=== PATIENT | female | born 1990 | race Caucasian/White ===

== ENCOUNTER 2020-01-31 21:59 | Outpatient (REF) | payer BC, SELFPAY ==
[2020-02-01 20:05] LABS: Influenza A RNA Result Negative (Negative); Influenza B RNA Result Negative (Negative); RSV RNA Result Negative (Negative)
[2020-02-04 12:06] LABS: COVID-19 RT-PCR Result NEGATIVE (Negative)
== END 2020-01-31 22:19 ==
LOC: LBN 21:59
PROVIDERS: PCP Family Medicine; Visit Provider Student in an Organized Health Care Education/Training Program
DX: M79.18 Myalgia, other site (principal); B34.9 Viral infection, unspecified
CPT/HCPCS: 87631; U0003

== ENCOUNTER 2020-07-24 12:11 | Emergency (ER) | payer BC, SELFPAY ==
[2020-07-24 12:15] VITALS: BP 142/98; PULSE 88; RESP 16; TEMP 36.9; O2SAT 100
--- NOTE | 2020-07-24 12:15 | DI.RAD_ITS ---
Exam(s) XR ANKLE RT COMPLETE EXAM: XR ANKLE RT COMPLETE CLINICAL HISTORY: Fall, pain. TECHNIQUE: 2D digital imaging was performed. COMPARISON: No exams were available for comparison FINDINGS: BONES: No acute fracture is present. No bony destructive lesion is seen. JOINTS: The ankle mortise is normally aligned. SOFT TISSUE: Swelling greater around the lateral malleolus. IMPRESSION: Unremarkable radiographs of the right ankle. DATA REPOSITORY: RADIATION DOSE DELIVERED:
--- NOTE | 2020-07-24 12:19 | ED.GENADUL_ITS ---
Discharge Plan Disposition Patient Disposition: HOME Condition: Improving Discharge Details Chief Complaint: Orthopedic Clinical Impression: Moderate right ankle sprain Primary Care Provider: Jessa Beltre ED Provider: Lexa Hurtado Discharge Instructions Instructions: Ankle Sprain (ED) Additional Instructions: Home to rest today. Elevate above the level of the heart to reduce pain and swelling. Apply ice to reduce swelling. May use Tylenol and/or ibuprofen as needed for pain. Crutches with full or partial weightbearing until you can weight-bear without pain while using lace up ankle walker. Wean from crutches and then wean from ankle stabilizer as we discussed. Return to the ER for any acute concerns. Medical Decision Making 29-year-old female slipped and fell down stairs last night. Now with right lateral malleolar pain and swelling. Some ability to bear weight but it does provoke more pain. She was not injured in any other way. Patient had applied cool compress and taken [id number] analgesia. She was referred for x-ray which does not reveal acute fracture. Soft tissue swelling noted. Patient lace up ankle stabilizer, crutches as needed, she is stable for o utpatient management of ankle sprain. HPI General Mode of arrival: ambulatory . Date/Time Provider Initiated Documentation: 07/24/20 12:11 . Limitations to Documentation: no limitations . Information obtained by: patient . History of Present Illness 29 year old F presents to the emergency department with the chief complaint of R ankle injuy, described as mild, Quality is described as dull and constant, and is localized to the right and lower extremity. Patient reports no radiation. Patient started experiencing this minute(s) and it has been constant. Rest improves symptom(s), Patient notes no other symptoms.. Patient did receive the following treatments prior to arrival, cold therapy Related Data Allergies Allergy/AdvReac Type Severity Reaction Status Date / Time No Known Allergies Allergy Unverified 07/24/20 12:20 General Stated Complaint: Orthopedic JOANN: 4 Review of Systems Narrative: Denies other injury. No LOC, no back injy PFSH Social History Smoking/Tobacco Use Status: Current every day Smoking risk assessment performed?: Yes Drug use: Never Exam Narrative Exam Narrative: GEN: awake, alert, oriented 3. Pleasant, well groomed, interactive. HEAD: Normocephalic, atraumatic EYES: PERRL, EOMI NECK: Full ROM EXT: Full ROM,R ankle lateral malleolus tenderness and edema. No medial tenderness. Knee is unremarkable. Neuro: Grossly normal neurologic exam, conversant, interactive. Psych: Speech fluent, thoughts congruent, affect normal Course Vital Signs Vital signs: Vital Signs Temperature 36.9 C 07/24/20 12:15 Pulse 88 07/24/20 12:15 Respiratory Rate 16 07/24/20 12:15 Blood Pressure 142/98 H 07/24/20 12:15 Pulse Oximetry 100 07/24/20 12:15 Temperature 36.9 C 07/24/20 12:15 Temperature Source Temporal Artery Scan 07/24/20 12:15 Pulse 88 07/24/20 12:15 Respiratory Rate 16 07/24/20 12:15 Blood Pressure 142/98 H 07/24/20 12:15 Blood Pressure Position Sitting 07/24/20 12:15 Pulse Oximetry 100 07/24/20 12:15 Oxygen Delivery Method Room Air 07/24/20 12:15 Oxygen Flow Rate 0 07/24/20 12:15 Pain Level 6 07/24/20 12:15
== END 2020-07-24 13:01 | disposition home or self-care (01) ==
LOC: ER 12:56
PROVIDERS: Emergency Provider Emergency Medicine; PCP Family Medicine
DX: S93.491A Sprain of other ligament of right ankle, initial encounter (principal); W10.8XXA Fall (on) (from) other stairs and steps, initial encounter
CPT/HCPCS: 29515; 99283; 73610